=== PATIENT | female | born 1955 | race Caucasian/White ===

== ENCOUNTER 2018-03-12 05:35 | Day surgery (SDC) | payer BC ==
[~2018-03-12] VITALS: Ht 167.6 cm; Wt 107.0 kg
[~2018-03-12 05:35] MED LIST: ACID REDUCER 1150 MG PO; ATORVASTATIN CA40 MG PO; CENTRUM SILVER1 EAC5 PO; MELOXICAM15 MG PO; OXYCODONE HCL15 MG PO; PEPCID20 MG PO; ZOFRAN4 MG PO
[2018-03-12 06:11] VITALS: BP 163/88
[2018-03-12] MEDS ORDERED: NORCO 5/3251 TABLET PO (08:24)
[2018-03-12] MEDS ORDERED: MOTRIN800 MG PO (08:24)
[2018-03-12 09:46] VITALS: BP 173/80
[2018-03-12 10:18] VITALS: BP 178/90
== END 2018-03-12 10:20 | disposition home or self-care (01) ==
LOC: SDC 05:35
DX: R93.8 Abnormal findings on diagnostic imaging of other specified body structures (principal); R10.2 Pelvic and perineal pain; F17.200 Nicotine dependence, unspecified, uncomplicated; E78.5 Hyperlipidemia, unspecified; E66.9 Obesity, unspecified; Z68.38 Body mass index [BMI] 38.0-38.9, adult; M19.90 Unspecified osteoarthritis, unspecified site; R73.03 Prediabetes; E55.9 Vitamin D deficiency, unspecified
CPT/HCPCS: 88305; J1100; J1885; J2250; J2405; J3010; Q0175